=== PATIENT | female | born 1985 | race Caucasian/White ===

== ENCOUNTER 2016-04-12 09:28 | Day surgery (SDC) | payer OTHER ==
[~2016-04-12] VITALS: Ht 157.5 cm; Wt 46.7 kg
[~2016-04-12 09:28] MED LIST: BACTRIM,SEPT1 TABLET PO; BENTYL20 MG PO; CITALOPRAM HBR20 M1 PO; Chromagen, Feogen, M PO; DIAZEPAM5 MG PO; ENDOCET 5-3251 EACH PO; GEODON20 MG PO; IBUPROFEN800 MG PO; MOTRIN400 MG PO; MOTRIN800 MG PO; Motrin PO; NATALCARE RX1 TABLE1 PO; NOHOMEMEDS; TRAZODONE HCL50 MG PO; ZANTAC150 MG PO; ZITHROMAX Z-PA250 MG PO; ZOFRAN ODT8 MG PO; no home meds
[2016-04-12] MEDS ORDERED: NORG-EE 0.18-01 EACH PO (09:55)
[2016-04-12 10:00] VITALS: BP 96/67
[2016-04-12] MEDS ORDERED: MOTRIN800 MG PO (13:33)
[2016-04-12] MEDS ORDERED: ENDOCET 5-3251 EACH PO (13:37)
[2016-04-12 14:47] VITALS: BP 102/64
[2016-04-12 15:50] VITALS: BP 100/63
== END 2016-04-12 18:48 | disposition home or self-care (01) ==
LOC: SDC 09:28
DX: N93.8 Other specified abnormal uterine and vaginal bleeding (principal); G80.9 Cerebral palsy, unspecified; N94.6 Dysmenorrhea, unspecified; N92.0 Excessive and frequent menstruation with regular cycle; N83.209 Unspecified ovarian cyst, unspecified side; Z83.3 Family history of diabetes mellitus; Z84.2 Family history of other diseases of the genitourinary system; Z80.3 Family history of malignant neoplasm of breast; Z80.0 Family history of malignant neoplasm of digestive organs; Z88.0 Allergy status to penicillin; Z88.5 Allergy status to narcotic agent; Z88.8 Allergy status to other drugs, medicaments and biological substances
CPT/HCPCS: 88305; J1100; J1170; J1885; J2250; J2405; J3010

== ENCOUNTER 2016-07-24 08:25 | Emergency (ER) | payer OTHER ==
[~2016-07-24] VITALS: Ht 157.5 cm; Wt 44.6 kg
[~2016-07-24 08:25] MED LIST changes: +NORG-EE 0.18-01 EACH PO
[2016-07-24] MEDS ORDERED: DOXYCYCLINE HY100 MG PO (10:36)
[2016-07-24] MEDS ORDERED: ZOFRAN ODT4 MG PO (10:36)
[2016-07-24 10:47] VITALS: BP 98/68
== END 2016-07-24 10:50 | disposition home or self-care (01) ==
LOC: EME 08:25
DX: J32.9 Chronic sinusitis, unspecified (principal); Z87.891 Personal history of nicotine dependence
CPT/HCPCS: 71020; 93005; 99281; 99284

== ENCOUNTER 2017-04-02 10:03 | Emergency (ER) | payer OTHER ==
[~2017-04-02] VITALS: Ht 157.5 cm; Wt 42.4 kg
[~2017-04-02 10:03] MED LIST changes: +DOXYCYCLINE HY100 MG PO; +ZOFRAN ODT4 MG PO
[2017-04-02 10:32] LABS: HEMATOCRIT 41.7 % (36.0-46.0); HEMOGLOBIN 14.5 G/DL (11.9-15.5); MCH 31.9 PG (29.0-34.0); MCHC 34.8 G/DL (30.0-36.0); MCV 91.9 FL (83-99); PLATELET COUNT 110 K/uL (156-360); RBC DIS.WIDTH-CV 11.9 % (11.8-14.6); RBC DIS.WIDTH-SD 40.7 % (39-53); RED BLOOD COUNT 4.54 M/uL (3.80-5.20)
[2017-04-02 10:33] LABS: WHITE BLOOD COUNT 1.8 K/uL (4.1-10.2)
[2017-04-02 10:41] LABS: CHLORIDE 104 mEq/L (99-109); POTASSIUM 3.8 mEq/L (3.7-5.4); SODIUM 139 mEq/L (136-147)
[2017-04-02 10:43] LABS: GLUCOSE 88 mg/dL (70-99)
[2017-04-02 10:46] LABS: CREATININE 0.7 mg/dL (0.6-1.3); GFR ESTIMATE (CALCULATED) > 59 mL/min/
[2017-04-02 10:47] LABS: UREA NITROGEN (BUN) 19 mg/dL (9-23)
[2017-04-02] MEDS ORDERED: COMPAZINE10 MG PO (11:52)
[2017-04-02 13:18] LABS: APPEARANCE SL.HAZY ((CLEAR)); BILIRUBIN NEGATIVE; BLOOD MODERATE; COLOR YELLOW ((YELLOW)); GLUCOSE (STRIP) NEGATIVE; KETONES 80; LEUKOCYTES NEGATIVE; NITRITE NEGATIVE; PROTEIN (STRIP) 30; SPECIFIC GRAVITY 1.029 (1.000-1.030); UROBILINOGEN 0.2 MG/DL (0.2-1.0)
[2017-04-02 13:30] LABS: BACTERIA RARE /HPF; EPITHELIAL CELLS 1+ /HPF; MUCUS 2+ /LPF; UCUL ADDED? NO; WHITE BLOOD CELLS 0-5 /HPF (0-5)
[2017-04-02 15:09] VITALS: BP 115/80
== END 2017-04-02 15:10 | disposition home or self-care (01) ==
LOC: EME 10:03
DX: B34.9 Viral infection, unspecified (principal); E86.0 Dehydration; F32.9 Major depressive disorder, single episode, unspecified; K21.9 Gastro-esophageal reflux disease without esophagitis; Z87.891 Personal history of nicotine dependence; Z88.5 Allergy status to narcotic agent; Z88.0 Allergy status to penicillin
CPT/HCPCS: 80048; 81003; 85027; 99281; 99283; J0780; J7040

== ENCOUNTER 2017-10-21 05:27 | Emergency (ER) | payer OTHER ==
[~2017-10-21] VITALS: Ht 157.5 cm; Wt 42.0 kg
[~2017-10-21 05:27] MED LIST changes: +COMPAZINE10 MG PO
[2017-10-21 06:08] LABS: HEMATOCRIT 39.1 % (36.0-46.0); HEMOGLOBIN 13.6 G/DL (11.9-15.5); MCH 31.3 PG (29.0-34.0); MCHC 34.8 G/DL (30.0-36.0); MCV 89.9 FL (83-99); PLATELET COUNT 156 K/uL (156-360); RBC DIS.WIDTH-CV 11.9 % (11.8-14.6); RBC DIS.WIDTH-SD 38.9 % (39-53); RED BLOOD COUNT 4.35 M/uL (3.80-5.20); WHITE BLOOD COUNT 6.9 K/uL (4.1-10.2)
[2017-10-21 06:17] LABS: CHLORIDE 107 mEq/L (99-109); POTASSIUM 3.5 mEq/L (3.7-5.4); SODIUM 140 mEq/L (136-147)
[2017-10-21 06:19] LABS: GLUCOSE 118 mg/dL (70-99); TOTAL PROTEIN 7.1 g/dL (6.4-8.3)
[2017-10-21 06:21] LABS: TOTAL BILIRUBIN 0.7 mg/dL (0.0-1.0)
[2017-10-21 06:22] LABS: ALKALINE PHOSPHATASE 40 IU/L (3-129)
[2017-10-21 06:23] LABS: CREATININE 0.8 mg/dL (0.6-1.3); GFR ESTIMATE (CALCULATED) > 59 mL/min/
[2017-10-21 06:24] LABS: AST (GOT) 16 IU/L (2-34); UREA NITROGEN (BUN) 11 mg/dL (9-23)
[2017-10-21 06:25] LABS: ALT (GPT) 20 IU/L (3-49)
[2017-10-21 06:26] LABS: LIPASE 12 U/L (1.0-51.0)
[2017-10-21 06:32] LABS: QUANTITATIVE HCG < 4.0 MIU/ML
[2017-10-21] MEDS ORDERED: BENTYL20 MG PO (07:08)
[2017-10-21] MEDS ORDERED: ZOFRAN4 MG PO (07:08)
[2017-10-21 07:18] VITALS: BP 103/76
== END 2017-10-21 07:18 | disposition home or self-care (01) ==
LOC: EME 05:27
DX: R10.13 Epigastric pain (principal); F32.9 Major depressive disorder, single episode, unspecified; K21.9 Gastro-esophageal reflux disease without esophagitis; Z88.1 Allergy status to other antibiotic agents; Z88.0 Allergy status to penicillin; Z87.891 Personal history of nicotine dependence
CPT/HCPCS: 80053; 81003; 83690; 84702; 85027; 99281; 99284; J1885; J2405; J7030